=== PATIENT | male | born 1945 | race Asian ===

== ENCOUNTER 2016-12-08 21:42 | Inpatient (IN) | payer MEDICARE ==
[~2016-12-08] VITALS: Ht 170.2 cm; Wt 66.0 kg
[~2016-12-08 21:42] MED LIST: AMOX1TAB16 PO; DSS100 PO; HYDR-309 PO; PRAV40 PO; TELM80TA2 PO
[2016-12-08] MEDS ORDERED: ALFU10TA30 PO (21:58)
[2016-12-08] MEDS ORDERED: VENL-53 PO (21:58)
[2016-12-08] MEDS ORDERED: CLOP75 PO (21:58)
[2016-12-08] MEDS ORDERED: METF850T2 PO (21:58)
[2016-12-08] MEDS ORDERED: DILT-18 PO (21:58)
[2016-12-08] MEDS ORDERED: TRAZ-144 PO (21:58)
[2016-12-08] MEDS ORDERED: CHL25 PO (21:58)
[2016-12-08] MEDS ORDERED: GABA-531 PO (21:58)
[2016-12-08 22:42] LABS: GLUCOSE,POINT OF CARE 98 MG/DL (70-110)
[2016-12-08 22:56] LABS: BASOPHILS # (AUTO) 0.02 K/uL (0.00-0.20); BASOPHILS % (AUTO) 0.1 % (0.0-2.0); EOSINOPHILS % (AUTO) 1.52 % (1.0-6.0); HEMATOCRIT 31.5 % (41-53); HEMOGLOBIN 10.7 g/dL (13.5-17.5); LYMPHOCYTES # (AUTO) 1.4 K/uL (1.0-4.8); LYMPHOCYTES % (AUTO) 10.7 % (22.0-44.0); MEAN CORPUSCULAR HEMOGLOBIN 32.3 pg (26.0-34.0); MEAN CORPUSCULAR HGB CONC 33.8 G/dL (31.0-37.0); MEAN CORPUSCULAR VOLUME 96 fL (80-100); MONOCYTES # (AUTO) 0.9 K/uL (0.1-1.0); MONOCYTES % (AUTO) 6.7 % (2.0-9.0); NEUTROPHILS # (AUTO) 10.5 K/uL (1.8-7.7); PLATELET COUNT (AUTO) 730 K/uL (150-450); RED CELL DISTRIBUTION WIDTH 12.4 % (11.5-14.5)
[2016-12-08] MEDS ORDERED: ONDANSETRON HCL 4 MG/2 ML VIAL IVP ONE (23:00)
[2016-12-08] MEDS ORDERED: MORPHINE SULFATE 4 MG/ML SYRINGE IVP ONE (23:00)
[2016-12-08] MEDS ORDERED: SODIUM CHLORIDE 0.9% 1,000 ML IV ONE (23:00)
[2016-12-08 23:01] LABS: ANION GAP 15 mmol/L (8-16); CALCIUM, TOTAL 9.5 mg/dL (8.8-10.5); CARBON DIOXIDE 27 mmol/L (22-29); CHLORIDE 97 mmol/L (98-107); CREATININE 1.06 mg/dL (0.60-1.30); GLOMERULAR FILTR. RATE CALC > 60 mL/min (>60); POTASSIUM 4.1 mmol/L (3.5-5.1); SODIUM SERUM 139 mmol/L (136-145); UREA NITROGEN, BLOOD 21 mg/dL (7-18)
[2016-12-08 23:04] LABS: PROTHROMBIN TIME 10.4 SEC (9.4-11.6)
[2016-12-08 23:07] LABS: ALANINE AMINOTRANSFERASE 59 U/L (12-78); ALBUMIN 3.2 g/dL (3.4-5.0); ASPARTATE AMINOTRANSFERASE 28 U/L (15-37); BILIRUBIN,TOTAL 0.8 mg/dL (0.1-1.0); TOTAL PROTEIN, SERUM 7.5 g/dL (6.4-8.2)
[2016-12-09] MEDS ORDERED: BARIUM SULFATE 0.1% SUSPENSION 450 ML BOTTLE PO ONE (00:45)
[2016-12-09] MEDS ORDERED: HYDROmorphone 2 MG/ML SYRINGE IVP ONE (01:15)
[2016-12-09] MEDS ORDERED: IOVERSOL 320 MG/ML 100 ML VIAL ONE (02:24)
[2016-12-09] MEDS ORDERED: SODIUM CHLORIDE 0.9% 100 ML ONE (02:24)
[2016-12-09 03:33] LABS: APPEARANCE,URINE CLEAR (CLEAR); GLUCOSE, URINE (UA) NEGATIVE (NEGATIVE); KETONES,URINE >=80 mg/dL (NEGATIVE); LEUKOCYTE ESTERASE ,URINE NEGATIVE (NEGATIVE); OCCULT BLOOD,URINE NEGATIVE (NEGATIVE); PROTEIN,URINE POS 1+ (NEGATIVE)
[2016-12-09 03:34] LABS: ADD UA MICROSCOPIC NO
[2016-12-09] MEDS ORDERED: ONDANSETRON HCL 4 MG/2 ML VIAL IVP PRN ×2 (04:15→09:15)
[2016-12-09] MEDS ORDERED: HYDROmorphone 2 MG/ML SYRINGE IVP PRN (04:15)
[2016-12-09] MEDS ORDERED: 0.9% SODIUM CHLORIDE 10 ML SYRINGE IVP PRN (04:15)
[2016-12-09] MEDS ORDERED: LABETALOL HCL 5 MG/ML 20 ML VIAL IVP ONE (05:00)
[2016-12-09 05:20] VITALS: BP 145/71
[2016-12-09 08:26] VITALS: BP 122/69
[2016-12-09] MEDS ORDERED: MAGNESIUM HYDROXIDE SUSPENSION 30 ML UDCUP PO PRN (09:15)
[2016-12-09] MEDS ORDERED: ACETAMINOPHEN 325 MG TABLET PO PRN (09:15)
[2016-12-09] MEDS ORDERED: INSULIN ASPART 100 UNITS/ML SQ PRN (09:15)
[2016-12-09] MEDS ORDERED: DEXTROSE 50%-WATER 25 GM/50 ML SYRINGE IVP PRN ×2 (09:15)
[2016-12-09 09:37] LABS: GLUCOSE,POINT OF CARE 90 MG/DL (70-110)
[2016-12-09] MEDS: DEXTROSE 5%-0.45% SODIUM CHL 1,000 ML IV SCH (09:47)
[2016-12-09 11:59] VITALS: BP 137/71
[2016-12-09 12:07] LABS: GLUCOSE,POINT OF CARE 89 MG/DL (70-110)
[2016-12-09] MEDS: METOCLOPRAMIDE HCL 5 MG/ML 2 ML VIAL IVP SCH ×3 (12:13→22:17)
[2016-12-09 15:20] VITALS: BP 129/69
[2016-12-09] MEDS ORDERED: SODIUM CHLORIDE 0.9% IRRIG BTL 1,000 ML IRRIG ONE (15:24)
[2016-12-09] MEDS: HEPARIN SODIUM,PORCINE 5,000 UNITS/ML VIAL SQ SCH ×2 (16:52→23:56)
[2016-12-09 18:12] LABS: GLUCOSE,POINT OF CARE 97 MG/DL (70-110)
[2016-12-09] MEDS: MORPHINE SULFATE 2 MG/ML SYRINGE IVP PRN (20:02)
[2016-12-09 20:54] VITALS: BP 145/69
[2016-12-09] MEDS ORDERED: DOCUSATE SODIUM 100 MG CAPSULE PO SCH (21:00)
[2016-12-09 23:47] LABS: GLUCOSE,POINT OF CARE 103 MG/DL (70-110)
[2016-12-10] VITALS (7 sets, daily range): BP systolic 142–156; BP diastolic 65–85
[2016-12-10] MEDS: DEXTROSE 5%-0.45% SODIUM CHL 1,000 ML IV SCH ×2 (00:32→23:45)
[2016-12-10] MEDS: MORPHINE SULFATE 2 MG/ML SYRINGE IVP PRN (03:16)
[2016-12-10] MEDS: METOCLOPRAMIDE HCL 5 MG/ML 2 ML VIAL IVP SCH ×4 (04:16→22:27)
[2016-12-10 07:13] LABS: GLUCOSE,POINT OF CARE 104 MG/DL (70-110)
[2016-12-10] MEDS: PANTOPRAZOLE SODIUM 40 MG/VIAL IVP SCH (09:12)
[2016-12-10] MEDS: HEPARIN SODIUM,PORCINE 5,000 UNITS/ML VIAL SQ SCH ×3 (09:13→23:49)
[2016-12-10 11:22] LABS: GLUCOSE,POINT OF CARE 114 MG/DL (70-110)
[2016-12-10 17:17] LABS: GLUCOSE,POINT OF CARE 93 MG/DL (70-110)
[2016-12-11] MEDS: METOCLOPRAMIDE HCL 5 MG/ML 2 ML VIAL IVP SCH ×3 (04:26→16:23)
[2016-12-11 05:04] VITALS: BP 136/76
[2016-12-11 06:26] LABS: BASOPHILS % (AUTO) 0.4 % (0.0-2.0); EOSINOPHILS % (AUTO) 2.5 % (1.0-6.0); HEMATOCRIT 27.6 % (41-53); HEMOGLOBIN 9.4 g/dL (13.5-17.5); LYMPHOCYTES # (AUTO) 1.5 K/uL (1.0-4.8); MEAN CORPUSCULAR HEMOGLOBIN 32.8 pg (26.0-34.0); MEAN CORPUSCULAR HGB CONC 34.1 G/dL (31.0-37.0); MEAN CORPUSCULAR VOLUME 96 fL (80-100); MONOCYTES # (AUTO) 0.8 K/uL (0.1-1.0); MONOCYTES % (AUTO) 7.3 % (2.0-9.0); NEUTROPHILS % (AUTO) 75.8 % (40.0-70.0); PLATELET COUNT (AUTO) 671 K/uL (150-450); RED BLOOD CELL COUNT(AUTO) 2.87 MIL/uL (4.50-5.90); RED CELL DISTRIBUTION WIDTH 12.6 % (11.5-14.5); WHITE BLOOD COUNT (AUTO) 10.6 K/uL (4.5-11.0)
[2016-12-11 06:41] LABS: ANION GAP 11 mmol/L (8-16); CALCIUM, TOTAL 8.6 mg/dL (8.8-10.5); CARBON DIOXIDE 27 mmol/L (22-29); CHLORIDE 104 mmol/L (98-107); CREATININE 0.92 mg/dL (0.60-1.30); GLOMERULAR FILTR. RATE CALC > 60 mL/min (>60); SODIUM SERUM 142 mmol/L (136-145); UREA NITROGEN, BLOOD 14 mg/dL (7-18)
[2016-12-11] MEDS: PANTOPRAZOLE SODIUM 40 MG/VIAL IVP SCH (07:50)
[2016-12-11] MEDS: HEPARIN SODIUM,PORCINE 5,000 UNITS/ML VIAL SQ SCH ×2 (07:50→16:23)
[2016-12-11 08:19] VITALS: BP 161/77
[2016-12-11] MEDS: POTASSIUM CHLORIDE 20 MEQ ER TABLET PO PRN ×2 (08:58→13:55)
[2016-12-11 11:37] LABS: GLUCOSE,POINT OF CARE 102 MG/DL (70-110)
[2016-12-11 11:37] LABS: GLUCOSE,POINT OF CARE 110 MG/DL (70-110)
[2016-12-11 11:38] LABS: GLUCOSE COMMENT 1 Received Meds; GLUCOSE,POINT OF CARE 154 MG/DL (70-110)
[2016-12-11 12:15] VITALS: BP 141/65
[2016-12-11 15:42] VITALS: BP 140/77
[2016-12-11] MEDS: MORPHINE SULFATE 2 MG/ML SYRINGE IVP PRN (16:30)
[2016-12-11 17:52] LABS: GLUCOSE,POINT OF CARE 119 MG/DL (70-110)
[2016-12-11 19:39] VITALS: BP 144/74
== END 2016-12-11 20:05 | disposition home or self-care (01) | DRG 390 ==
LOC: EMS 21:43 → 6N 12-09 04:19
PROVIDERS: ADMIT Internal Medicine; ATTEND Internal Medicine
PROC: 0D9670Z Drainage of Stomach with Drainage Device, Via Natural or Artificial Opening (ICD-10-PCS; principal; 2016-12-09)
DX: K56.60 Unspecified intestinal obstruction (principal); E11.9 Type 2 diabetes mellitus without complications; I10 Essential (primary) hypertension; E78.5 Hyperlipidemia, unspecified; E78.00 Pure hypercholesterolemia, unspecified; Z88.6 Allergy status to analgesic agent; Z79.899 Other long term (current) drug therapy; Z79.1 Long term (current) use of non-steroidal anti-inflammatories (NSAID); Z79.2 Long term (current) use of antibiotics; Z79.02 Long term (current) use of antithrombotics/antiplatelets; Z86.73 Personal history of transient ischemic attack (TIA), and cerebral infarction without residual deficits
CPT/HCPCS: 74022; 74177; 82271; 82962; 84132; 87081; 93005; 96361; 96374; 96375; 97161; 99285; C9113; J1170; J1644; J2270; J2405; J2765; J3490; J7030; J7050

== ENCOUNTER 2016-12-12 14:23 | Inpatient (IN) | payer MEDICARE ==
[~2016-12-12] VITALS: Ht 170.2 cm; Wt 58.5 kg
[~2016-12-12 14:23] MED LIST changes: +ALFU10TA30 PO; -AMOX1TAB16 PO; +CHL25 PO; +CLOP75 PO; +DILT-18 PO; +GABA-531 PO; +METF850T2 PO; +TRAZ-144 PO; +VENL-53 PO
[2016-12-12] MEDS ORDERED: SODIUM CHLORIDE 0.9% 1,000 ML IV ONE (15:15)
[2016-12-12 15:45] LABS: BASOPHILS % (AUTO) 0.1 % (0.0-2.0); EOSINOPHILS % (AUTO) 0.8 % (1.0-6.0); HEMATOCRIT 32.2 % (41-53); HEMOGLOBIN 10.6 g/dL (13.5-17.5); LYMPHOCYTES # (AUTO) 0.9 K/uL (1.0-4.8); LYMPHOCYTES % (AUTO) 5.4 % (22.0-44.0); MEAN CORPUSCULAR HEMOGLOBIN 32.1 pg (26.0-34.0); MEAN CORPUSCULAR VOLUME 97 fL (80-100); MONOCYTES # (AUTO) 0.6 K/uL (0.1-1.0); MONOCYTES % (AUTO) 3.7 % (2.0-9.0); NEUTROPHILS # (AUTO) 14.5 K/uL (1.8-7.7); RED BLOOD CELL COUNT(AUTO) 3.31 MIL/uL (4.50-5.90); RED CELL DISTRIBUTION WIDTH 12.9 % (11.5-14.5); WHITE BLOOD COUNT (AUTO) 16.1 K/uL (4.5-11.0)
[2016-12-12] MEDS ORDERED: MAGNESIUM HYDROXIDE SUSPENSION 30 ML UDCUP PO PRN (15:45)
[2016-12-12] MEDS ORDERED: MORPHINE SULFATE 4 MG/ML SYRINGE IVP PRN ×2 (15:45→16:00)
[2016-12-12] MEDS ORDERED: POTASSIUM CHL 10 MEQ/WATER 50 ML IV PRN (15:45)
[2016-12-12] MEDS ORDERED: POTASSIUM CHLORIDE 20 MEQ ER TABLET PO PRN (15:45)
[2016-12-12] MEDS ORDERED: MAGNESIUM SULFATE 4 GM/WATER 100 ML IV PRN (15:45)
[2016-12-12] MEDS ORDERED: ACETAMINOPHEN 325 MG TABLET PO PRN (15:45)
[2016-12-12] MEDS ORDERED: *CLINICAL-PERIPHERAL PARENTERAL NUTRITION DOSING CLINICAL ONE (15:45)
[2016-12-12] MEDS ORDERED: MAGNESIUM SULFATE 2 GM in DEXTROSE 5%-WATER 50 ML IV PRN (15:45)
[2016-12-12 15:47] LABS: ANION GAP 10 mmol/L (8-16); CALCIUM, TOTAL 9.4 mg/dL (8.8-10.5); CARBON DIOXIDE 26 mmol/L (22-29); CHLORIDE 101 mmol/L (98-107); CREATININE 1.18 mg/dL (0.60-1.30); GLOMERULAR FILTR. RATE CALC > 60 mL/min (>60); POTASSIUM 3.9 mmol/L (3.5-5.1); SODIUM SERUM 137 mmol/L (136-145); UREA NITROGEN, BLOOD 15 mg/dL (7-18)
[2016-12-12 15:52] LABS: ALANINE AMINOTRANSFERASE 58 U/L (12-78); ALBUMIN 3.3 g/dL (3.4-5.0); ASPARTATE AMINOTRANSFERASE 35 U/L (15-37); BILIRUBIN,TOTAL 0.9 mg/dL (0.1-1.0); PLATELET COUNT (AUTO) 796 K/uL (150-450)
[2016-12-12] MEDS ORDERED: DEXTROSE 50%-WATER 25 GM/50 ML SYRINGE IVP PRN (16:00)
[2016-12-12 16:26] LABS: RBC MORPHOLOGY COMMENT NORMAL RBC MORPH
[2016-12-12] MEDS: HEPARIN SODIUM,PORCINE 5,000 UNITS/ML VIAL SQ SCH ×2 (16:38→23:30)
[2016-12-12] MEDS: METOCLOPRAMIDE HCL 5 MG/ML 2 ML VIAL IVP SCH ×2 (16:38→23:30)
[2016-12-12] MEDS: PANTOPRAZOLE SODIUM 40 MG/VIAL IVP SCH (16:38)
[2016-12-12 17:54] VITALS: BP 159/75
[2016-12-12 19:33] VITALS: BP 145/75
[2016-12-12] MEDS: PPN SOLUTION 1 EA in AA 4.25%/CALCIUM/LYTES/D5W 1,000 ML IV SCH (22:12)
[2016-12-12] MEDS: DOCUSATE SODIUM 100 MG CAPSULE PO SCH (22:25)
[2016-12-12 22:32] LABS: GLUCOSE,POINT OF CARE 88 MG/DL (70-110)
[2016-12-12 23:24] VITALS: BP 143/71
[2016-12-12] MEDS: TEMAZEPAM 15 MG CAPSULE PO PRN (23:30)
[2016-12-13 04:50] VITALS: BP 141/73
[2016-12-13 06:08] LABS: GLUCOSE,POINT OF CARE 122 MG/DL (70-110)
[2016-12-13 07:08] LABS: BASOPHILS % (AUTO) 0.4 % (0.0-2.0); EOSINOPHILS % (AUTO) 2.2 % (1.0-6.0); HEMATOCRIT 28.1 % (41-53); HEMOGLOBIN 9.4 g/dL (13.5-17.5); LYMPHOCYTES # (AUTO) 2.1 K/uL (1.0-4.8); LYMPHOCYTES % (AUTO) 18.4 % (22.0-44.0); MEAN CORPUSCULAR HEMOGLOBIN 32.8 pg (26.0-34.0); MEAN CORPUSCULAR HGB CONC 33.4 G/dL (31.0-37.0); MEAN CORPUSCULAR VOLUME 98 fL (80-100); MONOCYTES # (AUTO) 0.7 K/uL (0.1-1.0); MONOCYTES % (AUTO) 5.7 % (2.0-9.0); NEUTROPHILS # (AUTO) 8.5 K/uL (1.8-7.7); NEUTROPHILS % (AUTO) 73.3 % (40.0-70.0); PLATELET COUNT (AUTO) 666 K/uL (150-450); RED BLOOD CELL COUNT(AUTO) 2.86 MIL/uL (4.50-5.90); RED CELL DISTRIBUTION WIDTH 13.1 % (11.5-14.5); WHITE BLOOD COUNT (AUTO) 11.6 K/uL (4.5-11.0)
[2016-12-13 07:23] VITALS: BP 140/79
[2016-12-13 07:39] LABS: ALANINE AMINOTRANSFERASE 43 U/L (12-78); ALBUMIN 2.5 g/dL (3.4-5.0); ANION GAP 11 mmol/L (8-16); ASPARTATE AMINOTRANSFERASE 24 U/L (15-37); BILIRUBIN,TOTAL 0.8 mg/dL (0.1-1.0); CALCIUM, TOTAL 8.5 mg/dL (8.8-10.5); CARBON DIOXIDE 24 mmol/L (22-29); CHLORIDE 104 mmol/L (98-107); GLOMERULAR FILTR. RATE CALC > 60 mL/min (>60); POTASSIUM 3.6 mmol/L (3.5-5.1); SODIUM SERUM 139 mmol/L (136-145); TOTAL PROTEIN, SERUM 6.7 g/dL (6.4-8.2); UREA NITROGEN, BLOOD 20 mg/dL (7-18)
[2016-12-13] MEDS: PANTOPRAZOLE SODIUM 40 MG/VIAL IVP SCH (08:18)
[2016-12-13] MEDS: DOCUSATE SODIUM 100 MG CAPSULE PO SCH ×2 (08:19→22:19)
[2016-12-13] MEDS: HEPARIN SODIUM,PORCINE 5,000 UNITS/ML VIAL SQ SCH ×3 (08:19→22:19)
[2016-12-13] MEDS: MAGNESIUM OXIDE 400 MG TABLET PO PRN ×3 (08:19→22:19)
[2016-12-13] MEDS: METOCLOPRAMIDE HCL 5 MG/ML 2 ML VIAL IVP SCH (08:19)
[2016-12-13] MEDS: METOCLOPRAMIDE HCL 10 MG TABLET PO SCH ×4 (09:00→22:19)
[2016-12-13 09:23] LABS: APPEARANCE,URINE CLEAR (CLEAR); GLUCOSE, URINE (UA) NEGATIVE (NEGATIVE); KETONES,URINE TRACE mg/dL (NEGATIVE); LEUKOCYTE ESTERASE ,URINE NEGATIVE (NEGATIVE); OCCULT BLOOD,URINE NEGATIVE (NEGATIVE); PH,URINE 5.5 (5.0-8.0); PROTEIN,URINE NEGATIVE (NEGATIVE)
[2016-12-13 09:34] LABS: RBC,URINE None Seen /HPF (0-2); WBC,URINE None Seen /HPF (0-5)
[2016-12-13 11:53] VITALS: BP 133/74
[2016-12-13] MEDS: PPN SOLUTION 1 EA in AA 4.25%/CALCIUM/LYTES/D5W 1,000 ML IV SCH ×2 (12:05→23:00)
[2016-12-13] MEDS: INSULIN ASPART 100 UNITS/ML SQ PRN ×2 (12:36→17:58)
[2016-12-13 12:48] LABS: GLUCOSE COMMENT 1 Received Meds; GLUCOSE,POINT OF CARE 148 MG/DL (70-110)
[2016-12-13 15:57] VITALS: BP 138/73
[2016-12-13] MEDS: ONDANSETRON HCL 4 MG/2 ML VIAL IVP PRN (16:12)
[2016-12-13 18:18] LABS: GLUCOSE,POINT OF CARE 135 MG/DL (70-110)
[2016-12-13 20:07] VITALS: BP 147/77
[2016-12-13] MEDS: TEMAZEPAM 15 MG CAPSULE PO PRN (22:19)
[2016-12-13 23:51] VITALS: BP 150/83
[2016-12-14 03:32] LABS: GLUCOSE,POINT OF CARE 116 MG/DL (70-110)
[2016-12-14 04:49] VITALS: BP 134/76
[2016-12-14 06:31] LABS: ANION GAP 9 mmol/L (8-16); CALCIUM, TOTAL 8.5 mg/dL (8.8-10.5); CARBON DIOXIDE 25 mmol/L (22-29); CHLORIDE 103 mmol/L (98-107); GLOMERULAR FILTR. RATE CALC > 60 mL/min (>60); PHOSPHORUS 3.8 mg/dL (2.5-4.9); POTASSIUM 3.7 mmol/L (3.5-5.1); SODIUM SERUM 137 mmol/L (136-145); UREA NITROGEN, BLOOD 21 mg/dL (7-18)
[2016-12-14 06:33] LABS: GLUCOSE,POINT OF CARE 136 MG/DL (70-110)
[2016-12-14 07:50] VITALS: BP 118/68
[2016-12-14] MEDS: PANTOPRAZOLE SODIUM 40 MG/VIAL IVP SCH (08:40)
[2016-12-14] MEDS: HEPARIN SODIUM,PORCINE 5,000 UNITS/ML VIAL SQ SCH ×3 (08:40→23:19)
[2016-12-14] MEDS: DOCUSATE SODIUM 100 MG CAPSULE PO SCH ×2 (08:40→21:00)
[2016-12-14] MEDS: METOCLOPRAMIDE HCL 10 MG TABLET PO SCH ×4 (08:40→21:04)
[2016-12-14 11:27] LABS: GLUCOSE,POINT OF CARE 115 MG/DL (70-110)
[2016-12-14 11:40] VITALS: BP 147/83
[2016-12-14] MEDS: MORPHINE SULFATE 2 MG/ML SYRINGE IVP PRN (12:16)
[2016-12-14] MEDS: PPN SOLUTION 1 EA in AA 4.25%/CALCIUM/LYTES/D5W 1,000 ML IV SCH (15:25)
[2016-12-14 15:40] VITALS: BP 129/76
[2016-12-14 17:38] LABS: GLUCOSE,POINT OF CARE 118 MG/DL (70-110)
[2016-12-14 19:58] VITALS: BP 121/63
[2016-12-14 20:32] LABS: GLUCOSE,POINT OF CARE 95 MG/DL (70-110)
[2016-12-14] MEDS: TEMAZEPAM 15 MG CAPSULE PO PRN (23:19)
[2016-12-15 05:23] VITALS: BP 122/76
[2016-12-15 06:21] LABS: BASOPHILS % (AUTO) 0.6 % (0.0-2.0); EOSINOPHILS % (AUTO) 1.6 % (1.0-6.0); HEMATOCRIT 28.5 % (41-53); HEMOGLOBIN 9.6 g/dL (13.5-17.5); LYMPHOCYTES # (AUTO) 1.3 K/uL (1.0-4.8); LYMPHOCYTES % (AUTO) 13.6 % (22.0-44.0); MEAN CORPUSCULAR HEMOGLOBIN 32.6 pg (26.0-34.0); MEAN CORPUSCULAR HGB CONC 33.5 G/dL (31.0-37.0); MEAN CORPUSCULAR VOLUME 97 fL (80-100); MONOCYTES # (AUTO) 0.9 K/uL (0.1-1.0); MONOCYTES % (AUTO) 9.4 % (2.0-9.0); NEUTROPHILS # (AUTO) 6.9 K/uL (1.8-7.7); NEUTROPHILS % (AUTO) 74.8 % (40.0-70.0); PLATELET COUNT (AUTO) 679 K/uL (150-450); RED BLOOD CELL COUNT(AUTO) 2.93 MIL/uL (4.50-5.90); RED CELL DISTRIBUTION WIDTH 13.6 % (11.5-14.5); WHITE BLOOD COUNT (AUTO) 9.2 K/uL (4.5-11.0)
[2016-12-15] MEDS: PPN SOLUTION 1 EA in AA 4.25%/CALCIUM/LYTES/D5W 1,000 ML IV SCH ×2 (06:29→20:46)
[2016-12-15 06:51] LABS: ANION GAP 7 mmol/L (8-16); CALCIUM, TOTAL 8.7 mg/dL (8.8-10.5); CARBON DIOXIDE 27 mmol/L (22-29); CHLORIDE 101 mmol/L (98-107); CREATININE 0.96 mg/dL (0.60-1.30); GLOMERULAR FILTR. RATE CALC > 60 mL/min (>60); PHOSPHORUS 3.7 mg/dL (2.5-4.9); SODIUM SERUM 135 mmol/L (136-145); UREA NITROGEN, BLOOD 22 mg/dL (7-18)
[2016-12-15 07:15] VITALS: BP 127/70
[2016-12-15 08:08] LABS: GLUCOSE,POINT OF CARE 106 MG/DL (70-110)
[2016-12-15] MEDS: METOCLOPRAMIDE HCL 10 MG TABLET PO SCH ×4 (08:52→20:46)
[2016-12-15] MEDS: DOCUSATE SODIUM 100 MG CAPSULE PO SCH ×2 (08:52→20:46)
[2016-12-15] MEDS: PANTOPRAZOLE SODIUM 40 MG/VIAL IVP SCH (08:52)
[2016-12-15] MEDS: HEPARIN SODIUM,PORCINE 5,000 UNITS/ML VIAL SQ SCH ×2 (08:52→16:37)
[2016-12-15 11:16] VITALS: BP 116/78
[2016-12-15 13:48] LABS: GLUCOSE,POINT OF CARE 120 MG/DL (70-110)
[2016-12-15 15:21] VITALS: BP 125/63
[2016-12-15] MEDS: MORPHINE SULFATE 2 MG/ML SYRINGE IVP PRN (16:37)
[2016-12-15] MEDS: ONDANSETRON HCL 4 MG/2 ML VIAL IVP PRN (17:48)
[2016-12-15 18:02] LABS: GLUCOSE,POINT OF CARE 139 MG/DL (70-110)
[2016-12-15 19:43] VITALS: BP 114/64
[2016-12-15] MEDS: TEMAZEPAM 15 MG CAPSULE PO PRN (22:01)
[2016-12-16] MEDS: POTASSIUM CHLORIDE IV SCH ×4 (00:11→13:09)
[2016-12-16] MEDS: [UNRECOGNIZED DRUG - OTHER] IV SCH ×4 (00:11→13:09)
[2016-12-16] MEDS: CALCIUM IV SCH ×4 (00:11→13:09)
[2016-12-16] MEDS: PPN IV SCH ×4 (00:11→13:09)
[2016-12-16] MEDS: D5W IV SCH ×4 (00:11→13:09)
[2016-12-16] MEDS: LYTES IV SCH ×4 (00:11→13:09)
[2016-12-16] MEDS: HEPARIN SODIUM,PORCINE 5,000 UNITS/ML VIAL SQ SCH ×4 (00:14→23:15)
[2016-12-16 05:37] VITALS: BP 102/68
[2016-12-16 06:43] LABS: ANION GAP 6 mmol/L (8-16); CALCIUM, TOTAL 8.8 mg/dL (8.8-10.5); CARBON DIOXIDE 27 mmol/L (22-29); CHLORIDE 100 mmol/L (98-107); GLOMERULAR FILTR. RATE CALC > 60 mL/min (>60); PHOSPHORUS 3.8 mg/dL (2.5-4.9); POTASSIUM 4.1 mmol/L (3.5-5.1); SODIUM SERUM 133 mmol/L (136-145); UREA NITROGEN, BLOOD 24 mg/dL (7-18)
[2016-12-16] MEDS: METOCLOPRAMIDE HCL 10 MG TABLET PO SCH ×4 (08:33→21:02)
[2016-12-16] MEDS: DOCUSATE SODIUM 100 MG CAPSULE PO SCH (08:33)
[2016-12-16] MEDS: PANTOPRAZOLE SODIUM 40 MG/VIAL IVP SCH (08:33)
[2016-12-16 08:35] VITALS: BP 105/67
[2016-12-16 11:26] VITALS: BP 103/55
[2016-12-16] MEDS: MORPHINE SULFATE 2 MG/ML SYRINGE IVP PRN ×2 (11:38→21:03)
[2016-12-16 11:42] LABS: GLUCOSE COMMENT 1 Received Meds; GLUCOSE,POINT OF CARE 117 MG/DL (70-110)
[2016-12-16 12:42] LABS: GLUCOSE COMMENT 1 Received Meds; GLUCOSE COMMENT 2 Juice/Food/D50 Given; GLUCOSE,POINT OF CARE 107 MG/DL (70-110)
[2016-12-16 12:42] LABS: GLUCOSE,POINT OF CARE 122 MG/DL (70-110)
[2016-12-16 15:59] VITALS: BP 104/53
[2016-12-16 17:57] LABS: GLUCOSE,POINT OF CARE 114 MG/DL (70-110)
[2016-12-16 19:30] VITALS: BP 143/77
[2016-12-16] MEDS ORDERED: D5W IV SCH ×2 (22:00)
[2016-12-16] MEDS ORDERED: PPN IV SCH ×2 (22:00)
[2016-12-16] MEDS ORDERED: CALCIUM IV SCH ×2 (22:00)
[2016-12-16] MEDS ORDERED: [UNRECOGNIZED DRUG - OTHER] IV SCH ×2 (22:00)
[2016-12-16] MEDS ORDERED: LYTES IV SCH ×2 (22:00)
[2016-12-16] MEDS ORDERED: SODIUM CHLORIDE IV SCH ×2 (22:00)
[2016-12-16] MEDS: TEMAZEPAM 15 MG CAPSULE PO PRN (22:12)
[2016-12-16 22:18] LABS: GLUCOSE,POINT OF CARE 105 MG/DL (70-110)
[2016-12-17] MEDS: MORPHINE SULFATE 2 MG/ML SYRINGE IVP PRN ×2 (03:54→18:33)
[2016-12-17 07:16] LABS: BASOPHILS # (AUTO) 0.04 K/uL (0.00-0.20); BASOPHILS % (AUTO) 0.5 % (0.0-2.0); EOSINOPHILS # (AUTO) 0.14 K/uL (0.00-0.70); EOSINOPHILS % (AUTO) 1.68 % (1.0-6.0); HEMATOCRIT 28.1 % (41-53); HEMOGLOBIN 9.5 g/dL (13.5-17.5); LYMPHOCYTES # (AUTO) 1.5 K/uL (1.0-4.8); LYMPHOCYTES % (AUTO) 18.1 % (22.0-44.0); MEAN CORPUSCULAR HEMOGLOBIN 32.8 pg (26.0-34.0); MEAN CORPUSCULAR HGB CONC 33.6 G/dL (31.0-37.0); MEAN CORPUSCULAR VOLUME 98 fL (80-100); MONOCYTES # (AUTO) 0.9 K/uL (0.1-1.0); MONOCYTES % (AUTO) 10.9 % (2.0-9.0); NEUTROPHILS # (AUTO) 5.7 K/uL (1.8-7.7); NEUTROPHILS % (AUTO) 68.9 % (40.0-70.0); PLATELET COUNT (AUTO) 569 K/uL (150-450); RED BLOOD CELL COUNT(AUTO) 2.88 MIL/uL (4.50-5.90); RED CELL DISTRIBUTION WIDTH 13.2 % (11.5-14.5); WHITE BLOOD COUNT (AUTO) 8.2 K/uL (4.5-11.0)
[2016-12-17 07:46] VITALS: BP 104/53
[2016-12-17 08:06] LABS: ALANINE AMINOTRANSFERASE 61 U/L (12-78); ANION GAP 10 mmol/L (8-16); ASPARTATE AMINOTRANSFERASE 32 U/L (15-37); BILIRUBIN,TOTAL 0.7 mg/dL (0.1-1.0); CALCIUM, TOTAL 8.9 mg/dL (8.8-10.5); CARBON DIOXIDE 25 mmol/L (22-29); CHLORIDE 100 mmol/L (98-107); CREATININE 1.01 mg/dL (0.60-1.30); GLOMERULAR FILTR. RATE CALC > 60 mL/min (>60); POTASSIUM 4.4 mmol/L (3.5-5.1); SODIUM SERUM 135 mmol/L (136-145); TOTAL PROTEIN, SERUM 7.2 g/dL (6.4-8.2); UREA NITROGEN, BLOOD 27 mg/dL (7-18)
[2016-12-17] MEDS: PANTOPRAZOLE SODIUM 40 MG/VIAL IVP SCH (08:29)
[2016-12-17] MEDS: HEPARIN SODIUM,PORCINE 5,000 UNITS/ML VIAL SQ SCH ×3 (08:29→22:43)
[2016-12-17] MEDS: METOCLOPRAMIDE HCL 10 MG TABLET PO SCH ×4 (08:30→20:10)
[2016-12-17 09:38] LABS: PROTHROMBIN TIME 10.7 SEC (9.4-11.6)
[2016-12-17 09:58] LABS: GLUCOSE,POINT OF CARE 108 MG/DL (70-110)
[2016-12-17] MEDS ORDERED: HEPARIN SODIUM 1000 UNITS/NS 500 ML ONE (10:23)
[2016-12-17] MEDS ORDERED: *CLINICAL-TOTAL PARENTERAL NUTRITION DOSING CLINICAL ONE (12:00)
[2016-12-17 14:29] VITALS: BP 120/67
[2016-12-17 15:32] VITALS: BP 160/77
[2016-12-17 17:00] VITALS: BP 132/68
[2016-12-17 17:23] LABS: GLUCOSE COMMENT 1 Received Meds; GLUCOSE,POINT OF CARE 126 MG/DL (70-110)
[2016-12-17] MEDS ORDERED: INSULIN REGULAR, HUMAN 100 UNITS/ML SQ PRN (18:00)
[2016-12-17] MEDS ORDERED: DEXTROSE 50%-WATER 25 GM/50 ML SYRINGE IVP PRN ×2 (18:00→22:00)
[2016-12-17 19:55] VITALS: BP 143/68
[2016-12-17] MEDS ORDERED: TPN SOLUTION 1 EA, SODIUM CHLORIDE 70 MEQ, SODIUM PHOS,M-BASIC-D-BASIC 30 MEQ, POTASSIU... IV SCH ×9 (22:00)
[2016-12-17 22:33] LABS: GLUCOSE,POINT OF CARE 105 MG/DL (70-110)
[2016-12-17] MEDS: TEMAZEPAM 15 MG CAPSULE PO PRN (22:43)
[2016-12-17 23:37] VITALS: BP 139/67
[2016-12-18 04:44] VITALS: BP 136/77
[2016-12-18 05:47] LABS: GLUCOSE,POINT OF CARE 119 MG/DL (70-110)
[2016-12-18 06:08] LABS: ALANINE AMINOTRANSFERASE 61 U/L (12-78); ANION GAP 7 mmol/L (8-16); ASPARTATE AMINOTRANSFERASE 27 U/L (15-37); BILIRUBIN,TOTAL 0.7 mg/dL (0.1-1.0); CALCIUM, TOTAL 8.8 mg/dL (8.8-10.5); CARBON DIOXIDE 27 mmol/L (22-29); CHLORIDE 101 mmol/L (98-107); CREATININE 0.98 mg/dL (0.60-1.30); GLOMERULAR FILTR. RATE CALC > 60 mL/min (>60); POTASSIUM 3.9 mmol/L (3.5-5.1); SODIUM SERUM 135 mmol/L (136-145); TOTAL PROTEIN, SERUM 7.1 g/dL (6.4-8.2); UREA NITROGEN, BLOOD 26 mg/dL (7-18)
[2016-12-18 07:54] VITALS: BP 138/67
[2016-12-18] MEDS: HEPARIN SODIUM,PORCINE 5,000 UNITS/ML VIAL SQ SCH ×3 (08:27→23:42)
[2016-12-18] MEDS: PANTOPRAZOLE SODIUM 40 MG/VIAL IVP SCH (08:27)
[2016-12-18] MEDS: METOCLOPRAMIDE HCL 10 MG TABLET PO SCH ×4 (08:27→21:06)
[2016-12-18 11:34] VITALS: BP 136/62
[2016-12-18] MEDS: INSULIN REGULAR, HUMAN 100 UNITS/ML SQ PRN ×2 (11:43→21:18)
[2016-12-18 11:58] LABS: GLUCOSE COMMENT 1 Received Meds; GLUCOSE,POINT OF CARE 142 MG/DL (70-110)
[2016-12-18] MEDS: FAT EMULSIONS 20% 100 ML IV SCH (15:29)
[2016-12-18 16:13] VITALS: BP 149/74
[2016-12-18 18:12] LABS: GLUCOSE,POINT OF CARE 118 MG/DL (70-110)
[2016-12-18 20:34] VITALS: BP 157/70
[2016-12-18] MEDS ORDERED: TPN SOLUTION 1 EA, SODIUM CHLORIDE 70 MEQ, SODIUM PHOS,M-BASIC-D-BASIC 30 MEQ, POTASSIU... IV SCH ×9 (22:00)
[2016-12-18 23:34] VITALS: BP 146/67
[2016-12-18] MEDS: TEMAZEPAM 15 MG CAPSULE PO PRN (23:42)
[2016-12-18] MEDS: MORPHINE SULFATE 2 MG/ML SYRINGE IVP PRN (23:43)
[2016-12-19 03:27] LABS: GLUCOSE COMMENT 1 Received Meds; GLUCOSE,POINT OF CARE 120 MG/DL (70-110)
[2016-12-19 03:27] LABS: GLUCOSE,POINT OF CARE 81 MG/DL (70-110)
[2016-12-19 04:28] VITALS: BP 148/73
[2016-12-19 06:21] LABS: ALANINE AMINOTRANSFERASE 50 U/L (12-78); ALBUMIN 2.9 g/dL (3.4-5.0); ANION GAP 8 mmol/L (8-16); ASPARTATE AMINOTRANSFERASE 17 U/L (15-37); BILIRUBIN,TOTAL 0.5 mg/dL (0.1-1.0); CALCIUM, TOTAL 8.8 mg/dL (8.8-10.5); CARBON DIOXIDE 25 mmol/L (22-29); CHLORIDE 104 mmol/L (98-107); CREATININE 0.93 mg/dL (0.60-1.30); GLOMERULAR FILTR. RATE CALC > 60 mL/min (>60); PHOSPHORUS 3.9 mg/dL (2.5-4.9); SODIUM SERUM 137 mmol/L (136-145); TOTAL PROTEIN, SERUM 6.7 g/dL (6.4-8.2); UREA NITROGEN, BLOOD 24 mg/dL (7-18)
[2016-12-19 07:38] VITALS: BP 144/77
[2016-12-19] MEDS: HEPARIN SODIUM,PORCINE 5,000 UNITS/ML VIAL SQ SCH ×2 (08:43→16:38)
[2016-12-19] MEDS: PANTOPRAZOLE SODIUM 40 MG/VIAL IVP SCH (08:43)
[2016-12-19] MEDS: METOCLOPRAMIDE HCL 10 MG TABLET PO SCH ×3 (08:43→16:38)
[2016-12-19] MEDS: FAT EMULSIONS 20% 100 ML IV SCH (08:43)
[2016-12-19 10:38] LABS: GLUCOSE,POINT OF CARE 124 MG/DL (70-110)
[2016-12-19 11:34] VITALS: BP 160/66
[2016-12-19] MEDS: INSULIN REGULAR, HUMAN 100 UNITS/ML SQ PRN (11:58)
[2016-12-19 16:00] VITALS: BP 141/71
[2016-12-19] MEDS ORDERED: HEPA500017 SQ (16:15)
[2016-12-19] MEDS ORDERED: PANT40I IV (16:16)
[2016-12-19] MEDS ORDERED: METO-296 PO (16:16)
[2016-12-19] MEDS ORDERED: TPN SOLUTION 1 EA, SODIUM CHLORIDE 70 MEQ, SODIUM PHOS,M-BASIC-D-BASIC 30 MEQ, POTASSIU... IV SCH ×9 (22:00)
[2016-12-20 02:27] LABS: GLUCOSE COMMENT 1 Received Meds; GLUCOSE,POINT OF CARE 142 MG/DL (70-110)
[2016-12-20 02:27] LABS: GLUCOSE,POINT OF CARE 121 MG/DL (70-110)
== END 2016-12-19 18:10 | disposition home or self-care (01) | DRG 389 ==
LOC: EMS 14:26 → 6N 16:57
PROVIDERS: ADMIT Internal Medicine; ATTEND Internal Medicine
PROC: 02HV33Z Insertion of Infusion Device into Superior Vena Cava, Percutaneous Approach (ICD-10-PCS; principal; 2016-12-17)
PROC: B548ZZA Ultrasonography of Superior Vena Cava, Guidance (ICD-10-PCS; 2016-12-17)
DX: K56.5 Intestinal adhesions [bands] with obstruction (postinfection) (principal); E44.0 Moderate protein-calorie malnutrition; E11.9 Type 2 diabetes mellitus without complications; K56.60 Unspecified intestinal obstruction; R53.81 Other malaise; E78.00 Pure hypercholesterolemia, unspecified; I10 Essential (primary) hypertension; R14.0 Abdominal distension (gaseous); Z88.6 Allergy status to analgesic agent; Z68.20 Body mass index [BMI] 20.0-20.9, adult
CPT/HCPCS: 36245; 36569; 74000; 74010; 74249; 76937; 82962; 83735; 84100; 84134; 84478; 96361; 96374; 97161; 99285; C9113; J0610; J1644; J2270; J2405; J2765; J3475; J3480; J3490; J7030; J7070; J7131